=== PATIENT | female | born 1985 | race Caucasian/White ===

== ENCOUNTER 2021-03-29 16:52 | Emergency (ER) | payer OTHER ==
[~2021-03-29] VITALS: Ht 165.1 cm; Wt 65.8 kg
[2021-03-29 16:54] VITALS: BP 132/76
--- NOTE | 2021-03-29 16:54 | NUR ---
35 Y FEMALE JOSEFINA FROM HOME DUE TO BACK PAIN. PER PT "SHE WENT TO LIFT UP A RAMP OF A MOVING TRUCK AND SUDDENLY FELT A POP IN HER LOWERS BACK." PT STATED "WHEN IT OCCURED SHE FELT NUMBNESS DOWN HER R LEG, BUT IT HAS RESOLOVED ITSELF." CURRENT PAIN IS ONLY FELT IN LOWER BACK PMH: ANGELA CHILDS Addendum: 03/29/21 at 1801 by MEDMACKENZIE PMH: HYSTERECTOMY
[2021-03-29] MEDS ORDERED: KETOROLAC 30 MG/ML VIAL IM ONE (17:10)
--- NOTE | 2021-03-29 17:31 | NUR ---
PT TAKEN TO XRAY VIA W/C
--- NOTE | 2021-03-29 17:58 | NUR ---
URINE NOT DONE DUE TO PT HX OF HYSTERECTOMY. PA MADE AWARE AND STATED URINE NOT LONGER NEEDED
--- NOTE | 2021-03-29 18:15 | NUR ---
PT INFORMED WORKER'S COMP CASE. PT PROVIDED WITH PAPER WORK
[2021-03-29] MEDS ORDERED: CAPS1ADH5 TP (18:18)
[2021-03-29] MEDS ORDERED: NAPR-1704 PO (18:18)
[2021-03-29 18:26] VITALS: BP 132/76
--- NOTE | 2021-03-29 18:28 | NUR ---
Patient discharged with v/s stable. Written and verbal after care instructions given and explained. Patient alert, oriented and verbalized understanding of instructions. Wheel Chair Assisted with to zuleima billy, pt is currently waiting for . All questions addressed prior to discharge. ID band removed. Patient advised to follow up with PMD. Rx of naproxen and salonpas gel-patch given. Patient educated on indication of medication including possible reaction and side effects. Opportunity to ask questions provided and answered.
== END 2021-03-29 18:28 | disposition home or self-care (01) ==
LOC: MED 16:52
DX: S39.012A Strain of muscle, fascia and tendon of lower back, initial encounter (principal); X58.XXXA Exposure to other specified factors, initial encounter; Y93.89 Activity, other specified; Y92.89 Other specified places as the place of occurrence of the external cause; Y99.8 Other external cause status
CPT/HCPCS: 72100; 96372; 99283; J1885